=== PATIENT | female | born 2000 | race Caucasian/White ===

== ENCOUNTER 2019-12-01 06:18 | Outpatient (CLI) | payer OTHER ==
[2019-12-02 11:21] LABS: SARS-CoV-2 MS2 Positive; SARS-CoV-2 N Gene Negative; SARS-CoV-2 S Gene Negative; SARS-CoV-2 orf1ab Negative
== END 2019-12-01 06:19 | disposition home or self-care (01) ==
LOC: LABBT 06:18
PROVIDERS: ATTEND Internal Medicine
DX: Z01.812 Encounter for preprocedural laboratory examination (principal); Z11.59 Encounter for screening for other viral diseases; K21.9 Gastro-esophageal reflux disease without esophagitis; R11.0 Nausea; R14.0 Abdominal distension (gaseous)
CPT/HCPCS: 87635; U0003

== ENCOUNTER 2019-12-04 05:49 | Day surgery (SDC) | payer OTHER ==
[2019-12-01 15:11] VITALS: BMI 50.1
--- NOTE | 2019-12-04 09:43 | OP ---
DATE OF PROCEDURE: 12/04/2019 BUILDING SERVICES ENGINEER SURGEON: None. PROCEDURE PERFORMED: Esophagogastroduodenoscopy, diagnostic. INDICATIONS: 1. Chronic nausea. 2. Gastroesophageal reflux. MEDICATIONS: See Anesthesia record. FINDINGS: After discussion of the risks, benefits, and alternatives of the procedure, informed consent was obtained and witnessed. Pre-endoscopic cardiopulmonary examination was satisfactory. Time-out was performed before sedation was achieved. Sedation was achieved with Anesthesia assistance in the endoscopy unit. A Pentax adult upper endoscope was placed into the oropharynx and passed through the cricopharyngeus under direct visualization. The esophageal mucosa appeared normal throughout with a normal-appearing Z-line. The endoscope was advanced into the stomach. There was a moderate amount of liquid and particulate food matter within the gastric fundus. This obscured the view of a small portion of the mucosa in the fundus were visualized, the gastric mucosa was otherwise unremarkable throughout. There was no evidence of any erosions or ulcerations. The pylorus was patent. The endoscope was advanced through the pylorus and into the first and second portions of the duodenum, which also appeared normal. There was no evidence of hiatal hernia. The upper endoscope was completely withdrawn and the patient allowed to recover. The patient tolerated the procedure well. There were no immediate postprocedure complications. IMPRESSION: 1. Retained food in the gastric fundus. 2. Otherwise normal esophagogastroduodenoscopy. RECOMMENDATIONS: 1. We will get a gastric emptying scan, try to confirm gastroparesis. 2. Follow up in the GI clinic afterward. 3. Follow up results of labs already ordered. Job ID: [id number]
[2019-12-04] MEDS ORDERED: PROPOFOL 200 MG/20 ML VIAL ONE (14:15)
[2019-12-04] MEDS ORDERED: Lidocaine 1% PF 5 ML VIAL ONE (14:15)
== END 2019-12-04 08:54 | disposition home or self-care (01) ==
LOC: SDC 05:49
PROVIDERS: ATTEND Internal Medicine
PROC: 0DJ08ZZ Inspection of Upper Intestinal Tract, Via Natural or Artificial Opening Endoscopic (ICD-10-PCS; principal; 2019-12-04)
DX: K21.9 Gastro-esophageal reflux disease without esophagitis (principal); T18.2XXA Foreign body in stomach, initial encounter; R11.0 Nausea; Z79.899 Other long term (current) drug therapy; Z87.891 Personal history of nicotine dependence; Z88.1 Allergy status to other antibiotic agents
CPT/HCPCS: J2001; J2704

== ENCOUNTER 2020-01-04 07:28 | Outpatient (CLI) | payer OTHER ==
--- NOTE | 2020-01-04 13:39 | NM ---
RADIONUCLIDE GASTRIC EMPTYING SCAN: HISTORY: Abdominal distention (gaseous), gastroesophageal reflux disease without esophagitis, nausea. RADIOPHARMACEUTICAL: 2.2 mCi Technetium 99m-sulfur colloid administered orally in scrambled eggs. FINDINGS: There is 61% emptying of the ingested gastric contents at 1 hour, 84% emptying at 2 hours, 86% emptyi ng at 3 hours, and 100% emptying at 4 hours. The calculated gastric emptying half-time measures 58 minutes. IMPRESSION: Normal exam. POS: [facility]
== END 2020-01-04 07:29 | disposition home or self-care (01) ==
LOC: NM 07:28
PROVIDERS: ATTEND Internal Medicine
DX: K21.9 Gastro-esophageal reflux disease without esophagitis (principal); R11.0 Nausea; R14.0 Abdominal distension (gaseous)
CPT/HCPCS: 78264; A9541